=== PATIENT | female | born 1975 | race Caucasian/White ===

== ENCOUNTER 2019-08-19 10:08 | Emergency (ER) | payer OTHER ==
[~2019-08-19] VITALS: Ht 160 cm; Wt 80.7 kg
[2019-08-19 10:14] VITALS: BP 133/85; Ht 160 cm; Wt 80.7 kg
== END 2019-08-19 11:51 | disposition home or self-care (01) ==
LOC: ED 10:08
DX: S83.92XA Sprain of unspecified site of left knee, initial encounter (principal); S80.212A Abrasion, left knee, initial encounter; S99.922A Unspecified injury of left foot, initial encounter; I10 Essential (primary) hypertension; W18.39XA Other fall on same level, initial encounter; Y93.89 Activity, other specified; Y92.89 Other specified places as the place of occurrence of the external cause; Y99.8 Other external cause status
CPT/HCPCS: J1885